=== PATIENT | male | born 1980 | race Caucasian/White ===

== ENCOUNTER 2020-11-26 18:32 | Inpatient (IN) | payer OTHER ==
[2020-11-27] MEDS ORDERED: MAG HYDROX/AL HYDROX/SIMETH 30 ML UNIT-DOSE CUP PO PRN (01:51)
[2020-11-27] MEDS ORDERED: P-EPHED 60MG/TRIPROLIDI 2.5MG TABLET PO PRN (01:51)
[2020-11-27] MEDS ORDERED: MAGNESIUM CITRATE 300 ML BOTTLE PO PRN (01:51)
[2020-11-27] MEDS ORDERED: guaiFENesin 200 MG/10 ML 10 ML UNIT-DOSE CUPS PO PRN (01:51)
[2020-11-27] MEDS ORDERED: IBUPROFEN 400 MG TABLET (FP) PO PRN (01:51)
[2020-11-27] MEDS ORDERED: LOPERAMIDE HCL 2 MG CAPSULE PO PRN (01:51)
[2020-11-27] MEDS ORDERED: MAGNESIUM HYDROX 2400MG/30ML ORAL SUSPENSION 30 ML CUP PO PRN (01:51)
[2020-11-27] MEDS ORDERED: NICOTINE POLACRILEX 2 MG GUM BC PRN (01:51)
[2020-11-27] MEDS ORDERED: ACETAMINOPHEN 325 MG TABLET (FP) PO PRN (01:51)
[2020-11-27] MEDS: PRENATAL VITAMINS W/ FOLIC ACID TABLET (FP) PO SCH (11:16)
[2020-11-27] MEDS: NICOTINE 14 MG/24 HOURS TOPICAL PATCH TD SCH (11:16)
[2020-11-27 11:29] LABS: CALCIUM 8.1 mg/dL (8.5-10.1)
[2020-11-27 11:30] LABS: ALBUMIN 3.3 g/dl (3.4-5.0)
[2020-11-27 11:33] LABS: CREATININE 0.9 mg/dL (0.55-1.3)
[2020-11-27 11:34] LABS: BILIRUBIN,TOTAL 0.7 mg/dL (0.2-1); HEMATOCRIT 34.6 % (35.4-49); MCH 30.8 pg (25.7-33.7); MCHC 34.8 g/dl (32.0-35.9); MEAN CELL VOLUME 88.6 fl (80-96); MEAN PLT VOLUME 9.2 fl (7.5-11.1); PLATELET COUNT 152 K/MM3 (134-434); RBC 3.91 M/mm3 (4.00-5.60); RDW 14.2 % (11.9-15.9); TOT PROT 6.4 g/dl (6.4-8.2); WHITE BLOOD COUNT 2.1 K/mm3 (4.0-10.0)
[2020-11-27] MEDS ORDERED: POTASSIUM CHLORIDE ORAL LIQUID 20 MEQ/15 ML PO ONE (13:20)
[2020-11-27] MEDS ORDERED: METHADONE 20 MG, METHADONE 5 MG PO ONE (14:27)
[2020-11-27] MEDS ORDERED: METHADONE HCL 10 MG TABLET PO ONE (14:27)
[2020-11-27] MEDS ORDERED: METHADONE HCL 5 MG TABLET ONE (15:11)
[2020-11-27] MEDS ORDERED: METHADONE HCL 10 MG TABLET ONE (15:11)
[2020-11-27] MEDS ORDERED: THIAMINE HCL 100 MG TABLET (FP) PO SCH (22:00)
[2020-11-27] MEDS ORDERED: MELATONIN 5 MG TABLETS PO SCH (22:00)
[2020-11-28] MEDS ORDERED: METHADONE HCL 10 MG TABLET ONE (05:49)
[2020-11-28] MEDS ORDERED: METHADONE HCL 5 MG TABLET ONE (05:49)
[2020-11-28] MEDS ORDERED: METHADONE HCL 10 MG TABLET PO SCH (06:00)
[2020-11-28] MEDS ORDERED: METHADONE 20 MG, METHADONE 5 MG PO SCH (06:00)
[2020-11-28 06:45] VITALS: BP 116/65; PULSE 67; TEMP 97.7
[2020-11-28] MEDS: NICOTINE 14 MG/24 HOURS TOPICAL PATCH TD SCH (11:13)
[2020-11-28] MEDS: PRENATAL VITAMINS W/ FOLIC ACID TABLET (FP) PO SCH (11:13)
[2020-12-04] MEDS ORDERED: P-EPHED 60MG/TRIPROLIDI 2.5MG TABLET PO PRN (22:21)
[2020-12-04] MEDS ORDERED: MAGNESIUM HYDROX 2400MG/30ML ORAL SUSPENSION 30 ML CUP PO PRN (22:21)
[2020-12-04] MEDS ORDERED: MAG HYDROX/AL HYDROX/SIMETH 30 ML UNIT-DOSE CUP PO PRN (22:21)
[2020-12-04] MEDS ORDERED: NICOTINE POLACRILEX 2 MG GUM BC PRN (22:21)
[2020-12-04] MEDS ORDERED: guaiFENesin 200 MG/10 ML 10 ML UNIT-DOSE CUPS PO PRN (22:21)
[2020-12-04] MEDS ORDERED: ACETAMINOPHEN 325 MG TABLET (FP) PO PRN (22:21)
[2020-12-04] MEDS ORDERED: MAGNESIUM CITRATE 300 ML BOTTLE PO PRN (22:21)
[2020-12-04] MEDS ORDERED: IBUPROFEN 400 MG TABLET (FP) PO PRN (22:21)
[2020-12-04] MEDS ORDERED: LOPERAMIDE HCL 2 MG CAPSULE PO PRN (22:21)
[2020-12-05] MEDS ORDERED: PRENATAL VITAMINS W/ FOLIC ACID TABLET (FP) PO SCH (10:00)
[2020-12-05] MEDS ORDERED: NICOTINE 21 MG/24 HOURS TOPICAL PATCH TD SCH (10:00)
== END 2020-11-28 19:25 | disposition left against medical advice (07) | DRG 770 ==
LOC: YASAS 18:32 → Y3W 11-27 01:15
PROVIDERS: ADMIT Allergy & Immunology; ATTEND Allergy & Immunology
PROC: HZ42ZZZ Group Counseling for Substance Abuse Treatment, Cognitive-Behavioral (ICD-10-PCS; principal; 2020-11-27)
DX: F11.20 Opioid dependence, uncomplicated (principal); F14.20 Cocaine dependence, uncomplicated; F17.210 Nicotine dependence, cigarettes, uncomplicated; E87.6 Hypokalemia
CPT/HCPCS: 36415; 80053; 84132; 85027; 86780; 93005; 93010; C9803; U0003

== ENCOUNTER 2020-12-04 17:41 | Inpatient (IN) | payer OTHER ==
[2020-12-04 18:08] VITALS: BMI 28.5
[2020-12-04] MEDS ORDERED: MELATONIN 5 MG TABLETS PO SCH (22:00)
[2020-12-04] MEDS ORDERED: ACETAMINOPHEN 325 MG TABLET (FP) PO PRN (22:47)
[2020-12-04] MEDS ORDERED: IBUPROFEN 400 MG TABLET (FP) PO PRN (22:47)
[2020-12-04] MEDS ORDERED: guaiFENesin 200 MG/10 ML 10 ML UNIT-DOSE CUPS PO PRN (22:47)
[2020-12-04] MEDS ORDERED: P-EPHED 60MG/TRIPROLIDI 2.5MG TABLET PO PRN (22:47)
[2020-12-04] MEDS ORDERED: MAGNESIUM HYDROX 2400MG/30ML ORAL SUSPENSION 30 ML CUP PO PRN (22:47)
[2020-12-04] MEDS ORDERED: NICOTINE POLACRILEX 2 MG GUM BC PRN (22:47)
[2020-12-04] MEDS ORDERED: LOPERAMIDE HCL 2 MG CAPSULE PO PRN (22:47)
[2020-12-04] MEDS ORDERED: MAG HYDROX/AL HYDROX/SIMETH 30 ML UNIT-DOSE CUP PO PRN (22:47)
[2020-12-04] MEDS ORDERED: MAGNESIUM CITRATE 300 ML BOTTLE PO PRN (22:47)
[2020-12-05] MEDS ORDERED: TUBERCULIN PPD 5 TU/0.1ML VIAL ID ONE (07:02)
[2020-12-05] MEDS: METHADONE HCL 10 MG TABLET PO SCH (10:32)
[2020-12-05] MEDS: NICOTINE 14 MG/24 HOURS TOPICAL PATCH TD SCH (10:34)
[2020-12-05] MEDS: PRENATAL VITAMINS W/ FOLIC ACID TABLET (FP) PO SCH (10:34)
[2020-12-05 13:53] LABS: HEMATOCRIT 38.2 % (35.4-49); HEMOGLOBIN 13.3 GM/dL (11.7-16.9); MCH 30.7 pg (25.7-33.7); MCHC 34.9 g/dl (32.0-35.9); MEAN CELL VOLUME 87.9 fl (80-96); MEAN PLT VOLUME 8.9 fl (7.5-11.1); PLATELET COUNT 273 K/MM3 (134-434); RBC 4.34 M/mm3 (4.00-5.60); RDW 13.7 % (11.9-15.9)
[2020-12-05 13:57] LABS: CALCIUM 9.1 mg/dL (8.5-10.1)
[2020-12-05 13:58] LABS: ALBUMIN 3.5 g/dl (3.4-5.0); BLOOD UREA NITROGEN 8.9 mg/dL (7-18)
[2020-12-05 14:01] LABS: CREATININE 0.9 mg/dL (0.55-1.3)
[2020-12-05 14:02] LABS: BILIRUBIN,TOTAL 0.4 mg/dL (0.2-1); TOT PROT 7.1 g/dl (6.4-8.2)
[2020-12-05] MEDS ORDERED: THIAMINE HCL 100 MG TABLET (FP) PO SCH (22:00)
[2020-12-06] MEDS: METHADONE HCL 10 MG TABLET PO SCH (06:41)
[2020-12-06 06:50] VITALS: BP 100/65; PULSE 62; TEMP 96.9
[2020-12-06 10:11] LABS: URINE APPEARANCE CLOUDY; URINE BILIRUBIN NEGATIVE (NEGATIVE); URINE COLOR DK YELLOW; URINE GLUCOSE (UA) NEGATIVE (NEGATIVE); URINE KETONE TRACE (NEGATIVE); URINE LEUK ESTERASE NEGATIVE (NEGATIVE); URINE NITRITE NEGATIVE (NEGATIVE); URINE PROTEIN NEGATIVE (NEGATIVE)
[2020-12-06] MEDS: NICOTINE 14 MG/24 HOURS TOPICAL PATCH TD SCH (10:15)
[2020-12-06] MEDS: PRENATAL VITAMINS W/ FOLIC ACID TABLET (FP) PO SCH (10:15)
== END 2020-12-06 13:45 | disposition left against medical advice (07) | DRG 770 ==
LOC: YASAS 17:41 → Y3E 22:08
PROVIDERS: ADMIT Allergy & Immunology; ATTEND Allergy & Immunology
PROC: HZ42ZZZ Group Counseling for Substance Abuse Treatment, Cognitive-Behavioral (ICD-10-PCS; principal; 2020-12-04)
DX: F11.20 Opioid dependence, uncomplicated (principal); F14.20 Cocaine dependence, uncomplicated; F17.210 Nicotine dependence, cigarettes, uncomplicated
CPT/HCPCS: 36415; 80053; 81003; 85027; 86780; C9803; U0003

== ENCOUNTER 2021-02-09 08:21 | Inpatient (IN) | payer OTHER ==
[2021-02-09 08:56] VITALS: BMI 24.4
[2021-02-09] MEDS ORDERED: IBUPROFEN 400 MG TABLET (FP) PO PRN (09:52)
[2021-02-09] MEDS ORDERED: METHOCARBAMOL 500 MG TABLET PO PRN (09:52)
[2021-02-09] MEDS ORDERED: NICOTINE POLACRILEX 2 MG GUM BUC PRN (09:52)
[2021-02-09] MEDS ORDERED: ACETAMINOPHEN 325 MG TABLET (FP) PO PRN ×2 (09:52)
[2021-02-09] MEDS ORDERED: ONDANSETRON *ODT* 4 MG TABLET SL PRN (09:52)
[2021-02-09] MEDS ORDERED: MENTHOL/PHENOL 1 EACH UD MM PRN (09:52)
[2021-02-09] MEDS ORDERED: MAGNESIUM HYDROX 2400MG/30ML ORAL SUSPENSION 30 ML CUP PO PRN (09:52)
[2021-02-09] MEDS ORDERED: BISMUTH SUBSALICYLATE 262 MG/15 ML BTL PO PRN (09:52)
[2021-02-09] MEDS ORDERED: METHADONE HCL 10 MG TABLET (FOR DETOX USE ONLY) PO ONE (09:52)
[2021-02-09] MEDS ORDERED: cloNIDine HCL 0.1 MG TABLET PO PRN (09:52)
[2021-02-09] MEDS ORDERED: MAGNESIUM CITRATE 300 ML BOTTLE PO PRN (09:52)
[2021-02-09] MEDS ORDERED: MAG HYDROX/AL HYDROX/SIMETH 30 ML UNIT-DOSE CUP PO PRN (09:52)
[2021-02-09] MEDS: PRENATAL VITAMINS W/ FOLIC ACID TABLET (FP) PO SCH (11:16)
[2021-02-09] MEDS: NICOTINE 7 MG/24 HOURS TOPICAL PATCH TD SCH (11:16)
[2021-02-09] MEDS: hydrOXYzine PAMOATE 25 MG CAPSULE (FP) PO SCH ×4 (11:18→22:46)
[2021-02-09 13:40] LABS: HEMATOCRIT 38.8 % (35.4-49); HEMOGLOBIN 13.2 GM/dL (11.7-16.9); MCH 27.7 pg (25.7-33.7); MEAN CELL VOLUME 81.5 fl (80-96); MEAN PLT VOLUME 9.2 fl (7.5-11.1); PLATELET COUNT 232 K/MM3 (134-434); RBC 4.76 M/mm3 (4.00-5.60); RDW 14.5 % (11.9-15.9); WHITE BLOOD COUNT 9.5 K/mm3 (4.0-10.0)
[2021-02-09 13:47] LABS: BLOOD UREA NITROGEN 8.3 mg/dL (7-18)
[2021-02-09 13:49] LABS: ALBUMIN 3.6 g/dl (3.4-5.0)
[2021-02-09 13:51] LABS: CREATININE 0.8 mg/dL (0.55-1.3)
[2021-02-09 13:52] LABS: BILIRUBIN,TOTAL 0.8 mg/dL (0.2-1); TOT PROT 7.2 g/dl (6.4-8.2)
[2021-02-09 13:57] LABS: CALCIUM 8.6 mg/dL (8.5-10.1)
[2021-02-09] MEDS ORDERED: THIAMINE HCL 100 MG TABLET (FP) PO SCH (22:00)
[2021-02-09] MEDS ORDERED: MELATONIN 5 MG TABLETS PO SCH (22:00)
[2021-02-10] MEDS: hydrOXYzine PAMOATE 25 MG CAPSULE (FP) PO SCH (06:56)
[2021-02-10] MEDS ORDERED: METHADONE HCL 5 MG TABLET (FOR DETOX USE ONLY) ONE (09:36)
[2021-02-10] MEDS ORDERED: METHADONE HCL 10 MG TABLET (FOR DETOX USE ONLY) ONE (09:37)
[2021-02-10] MEDS ORDERED: METHADONE (DETOX) 20 MG, METHADONE (DETOX) 5 MG PO ONE (10:00)
[2021-02-10 10:01] VITALS: BP 115/56; PULSE 65; TEMP 97.7
[2021-02-10] MEDS ORDERED: METHADONE HCL 10 MG TABLET (FOR DETOX USE ONLY) PO ONE (10:15)
[2021-02-10] MEDS: PRENATAL VITAMINS W/ FOLIC ACID TABLET (FP) PO SCH (11:19)
[2021-02-10] MEDS: NICOTINE 7 MG/24 HOURS TOPICAL PATCH TD SCH (11:22)
[2021-02-11] MEDS ORDERED: METHADONE HCL 10 MG TABLET (FOR DETOX USE ONLY) PO ONE ×2 (10:00)
[2021-02-12] MEDS ORDERED: METHADONE HCL 5 MG TABLET (FOR DETOX USE ONLY) PO ONE (05:00)
[2021-02-12] MEDS ORDERED: METHADONE (DETOX) 10 MG, METHADONE (DETOX) 5 MG PO ONE (10:00)
[2021-02-13] MEDS ORDERED: METHADONE HCL 10 MG TABLET (FOR DETOX USE ONLY) PO ONE (10:00)
[2021-02-14] MEDS ORDERED: METHADONE HCL 5 MG TABLET (FOR DETOX USE ONLY) PO ONE (06:00)
== END 2021-02-10 11:33 | disposition left against medical advice (07) | DRG 770 ==
LOC: YASAS 08:21 → Y6N 10:34
PROVIDERS: ADMIT Allergy & Immunology; ATTEND Allergy & Immunology
PROC: HZ2ZZZZ Detoxification Services for Substance Abuse Treatment (ICD-10-PCS; principal; 2021-02-09)
DX: F11.23 Opioid dependence with withdrawal (principal); F14.20 Cocaine dependence, uncomplicated; F17.210 Nicotine dependence, cigarettes, uncomplicated
CPT/HCPCS: 36415; 70450-TC; 80053; 80307; 81003; 83690; 84132; 85025; 85027; 86780; 93005; 93010; C9803; U0003; U0005